=== PATIENT | male | born 1955 | race Caucasian/White ===

== ENCOUNTER 2017-12-29 00:18 | Emergency (ER) | payer OTHER ==
[2017-12-29] MEDS ORDERED: Sulfamethox/Trimethoprim DS 800/160* TAB PO ONE (01:02)
--- NOTE | 2017-12-29 01:05 | ED ---
Laceration/Wound HPI - HPI Summary HPI Summary: Complains of laceration to fourth right toe while trying to cut his toenails. States bleeding controlled. No anti-coag. Patient on daily aspirin. Denies any other injury or symptoms. History of DM - History of Current Complaint Stated Complaint: RT SIDE TOE INJURY Time Seen by Provider: 12/29/17 00:44 Hx Obtained From: Patient Mechanism of Injury: Sharp/Blunt Trauma Onset Severity: Mild Current Severity: None Pain Intensity: 0 Pain Scale Used: 0-10 Numeric Associated Signs & Symptoms: Negative - Allergy/Home Medications Allergies/Adverse Reactions: Allergies Allergy/AdvReac Type Severity Reaction Status Date / Time Adhesive Tape Allergy Intermediate Rash Verified 03/05/15 10:03 PMH/Surg Hx/FS Hx/Imm Hx Endocrine/Hematology History: Reports: Hx Diabetes Denies: Hx Anticoagulant Therapy Cardiovascular History: Reports: Hx Angina, Hx Coronary Artery Disease, Hx Hypercholesterolemia, Hx Hypertension Denies: Hx Myocardial Infarction, Hx Valvular Heart Disease Respiratory History: Denies: Hx Asthma, Hx Chronic Obstructive Pulmonary Disease (COPD) - Immunization History Date of Tetanus Vaccine: unknown Infectious Disease History: No Infectious Disease History: Denies: Hx Clostridium Difficile, Hx Hepatitis, Hx Human Immunodeficiency Virus (HIV), Hx of Known/Suspected MRSA, Hx Shingles, Hx Tuberculosis, Traveled Outside the [place] in Last 30 Days - Social History Alcohol Use: Weekly Alcohol Amount: 3-4 TIMES A WEEK Substance Use Type: Reports: None Smoking Status (MU): Never Smoked Tobacco Have You Smoked in the Last Year: No Review of Systems Constitutional: Negative Eyes: Negative ENT: Negative Cardiovascular: Negative Respiratory: Negative Gastrointestinal: Negative Genitourinary: Negative Musculoskeletal: Negative Skin: Other Neurological: Negative Psychological: Normal All Other Systems Reviewed And Are Negative: Yes Physical Exam - Summary Physical Exam Summary: Minimal amputation of distal tip of fourth right digit. Bleeding stopped. No indication for suturing. Vital Signs On Initial Exam: Initial Vitals Temp Pulse Resp BP Pulse Ox 98.6 F 78 20 142/70 98 12/29/17 00:20 12/29/17 00:20 12/29/17 00:20 12/29/17 00:20 12/29/17 00:20 Diagnostics - Vital Signs Vital Signs Temp Pulse Resp BP Pulse Ox 12/29/17 00:20 98.6 F 78 20 142/70 98 - Laboratory Lab Statement: Any lab studies that have been ordered have been reviewed, and results considered in the medical decision making process. Laceration Repair Course/Dx - Course Course Of Treatment: Complains of laceration to fourth right toe while trying to cut his toenails. States bleeding controlled. No anti-coag. Patient on daily aspirin. Denies any other injury or symptoms. History of DM. No indication for suturing. Very minimal portion of distal tip of right fourth toe amputated. Reading controlled. Wound washed with saline and chlorhexidine. Wrapped with bacitracin, nonstick pad and Coban. Patient started on Bactrim here in ED. Rx for same 7 days 3 times a day - Clinical Impression Provider Diagnoses: Laceration Discharge - Sign-Out/Discharge Documenting (check all that apply): Patient Departure - Discharge Plan Condition: Stable Disposition: HOME Prescriptions: Sulfamethox/Trimethoprim DS* [Bactrim DS 800/160 TAB*] 1 tab PO BID 7 Days #14 tab Patient Education Materials: Laceration (ED), Laceration Without Closure (ED) Referrals: Foster Smith DO [Primary Care Provider] - Additional Instructions: Take antibiotics as directed. May wash wound with warm running water and soap. Keep clean and protected during the day. Return for any new or worsening symptoms - Billing Disposition and Condition Condition: STABLE Disposition: Home
[2017-12-29 01:47] VITALS: BP 0/0
== END 2017-12-29 01:47 | disposition home or self-care (01) ==
LOC: ED 00:18
DX: S91.114A Laceration without foreign body of right lesser toe(s) without damage to nail, initial encounter (principal); W27.8XXA Contact with other nonpowered hand tool, initial encounter; Y93.89 Activity, other specified; Y92.9 Unspecified place or not applicable; Z79.82 Long term (current) use of aspirin; Z91.048 Other nonmedicinal substance allergy status
CPT/HCPCS: 99282; A9270-GY

== ENCOUNTER 2021-03-31 03:37 | Observation (INO) ==
[2021-03-31] MEDS ORDERED: NS 0.9% 1000 ml BAG 1,000 ML IV ONE (03:40)
[2021-03-31] MEDS ORDERED: Iodixanol (CONTRAST) 320 MG/ML 100 ML SDV IV ONE (04:21)
[2021-03-31 04:47] LABS: ABS Basophils 0.1 10^3/ul (0-0.2); ABS Eosinophils 0.1 10^3/ul (0-0.6); ABS Monocytes 0.8 10^3/ul (0-0.8); ABS Neutrophils 7.9 10^3/ul (1.5-7.7); Eosinophil % 1.4 %; Hematocrit 39 % (42-52); Lymphocyte % 9.9 %; Mean Corpuscular HGB Conc 36 g/dL (31-36); Mean Corpuscular Hemoglobin 31 pg (27-31); Mean Corpuscular Volume 88 fL (80-94); Mean Platelet Volume 8.3 fL (7.4-10.4); Platelet Count 172 10^3/uL (150-450); Red Blood Count 4.47 10^6 /uL (4.18-5.48); Red Cell Distribution Width 14 % (10-15)
[2021-03-31 05:02] LABS: Activated Partial Thrombo Time 34.3 seconds (26.0-38.0); INR 1.03 (0.86-1.15)
[2021-03-31 05:10] LABS: Albumin 3.9 g/dL (3.2-5.2); Albumin/Globulin Ratio 1.2 (1-3); Calcium 8.6 mg/dL (8.6-10.3); Globulin 3.2 g/dL (2-4); HDL Cholesterol 34.2 mg/dL; Potassium 4.4 mmol/L (3.5-5.0); Total Bilirubin 0.9 mg/dL (0.2-1.0); Total Protein 7.1 g/dL (6.4-8.9)
[2021-03-31 05:11] LABS: Troponin I 0.01 ng/mL (<0.03)
[2021-03-31 05:31] LABS: Rapid COVID-19 Molecular Undetected (Undetected)
[2021-03-31 06:28] VITALS: BP 162/88
[2021-03-31] MEDS ORDERED: NS 0.9% 1000 ml BAG 1,000 ML IV SCH (06:45)
[2021-03-31] MEDS ORDERED: Dextrose 50% Syringe 50 ml 25 GM/50 ML SYRINGE IV PUSH PRN (07:35)
[2021-03-31] MEDS ORDERED: Insulin GLARGINE 100 un/ml 10 ml VIAL SUBCUT SCH ×2 (09:00→21:00)
== END 2021-03-31 09:56 | disposition left against medical advice (07) ==
LOC: ED 03:37 → EDHOLD 03:37 → SUATTDRO 06:42 → EDHOLD 09:55
PROVIDERS: ADMIT Internal Medicine; ATTEND Hospitalist